=== PATIENT | male | born 1955 | race Caucasian/White ===

== ENCOUNTER 2017-03-11 07:50 | Day surgery (SDC) | payer BC ==
[~2017-03-11 07:50] MED LIST: LIDOCAINE HCL 1% MPF SOL ONE; PROPOFOL 500 MG/50 ML EMU IV ONE; ROCURONIUM BROMIDE 10 MG/ML SOL IV ONE; SUCCINYLCHOLINE CHLORIDE 20 MG/ML SOL IV ONE
[2017-03-11] MEDS ORDERED: BUPIVACAINE LIPOSOME 20 ML SUS ONE (08:51)
[2017-03-11 10:22] VITALS: BP 115/76; PULSE 61; RESP 20; TEMP 97.2; O2SAT 98
== END 2017-03-11 10:55 | disposition home or self-care (01) ==
LOC: SURG 07:50
PROVIDERS: ATTEND Surgery
DX: Z12.11 Encounter for screening for malignant neoplasm of colon (principal); K64.5 Perianal venous thrombosis; K64.4 Residual hemorrhoidal skin tags; K57.30 Diverticulosis of large intestine without perforation or abscess without bleeding; D12.8 Benign neoplasm of rectum
CPT/HCPCS: 45380; 46083; 99001; J0330; J2001; J2704; J3010